=== PATIENT | male | born 1985 | race Caucasian/White ===

== ENCOUNTER 2019-02-18 11:41 | Emergency (ER) | payer MEDICARE, MEDICAID ==
[~2019-02-18] VITALS: Ht 182.9 cm; Wt 71.3 kg
[~2019-02-18 11:41] MED LIST: ACET-1757 PO; ALPR2TAB4 PO; FERR325T18 PO; FLEXERIL PO; GABA800T PO; HYDR8TAB27 PO
[2019-02-18 12:07] VITALS: BP 112/65
--- NOTE | 2019-02-18 12:33 | NUR ---
Patient given discharge instructions and they have confirmed that they understand the instructions. Patient ambulatory with steady gait.
[2019-02-18] MEDS ORDERED: IBUPROFEN 200 MG TABLET ONE (12:49)
[2019-02-18] MEDS ORDERED: IBUPROFEN 200 MG TABLET PO ONE (13:00)
== END 2019-02-18 12:41 | disposition home or self-care (01) ==
LOC: ED 12:07
DX: K02.9 Dental caries, unspecified (principal)
CPT/HCPCS: 99283